=== PATIENT | male | born 1950 | race Caucasian/White ===

== ENCOUNTER 2020-02-19 11:26 | Inpatient (IN) | payer MEDICARE, OTHER ==
[~2020-02-19] VITALS: Ht 167.6 cm; Wt 73.9 kg
[2020-02-19 12:05] LABS: *BILIRUBIN,URIN NEGATIVE (NEGATIVE); *CLARITY,URINE CLEAR (CLEAR); *COLOR,URINE YELLOW (YELLOW); *KETONES,URINE NEGATIVE (NEGATIVE); *UROBILINOGEN,URINE 0.2 E.U./dl (NORMAL); LEUKOCYTE ESTERASE ,URINE NEGATIVE (NEGATIVE); NITRITE, URINE NEGATIVE (NEGATIVE); PH,URINE 7.5 (5.0-8.0); UGLUCOSE NEGATIVE (NEGATIVE)
[2020-02-19 12:19] LABS: *BLOOD, URINE TRACE (NEGATIVE)
[2020-02-19 12:22] LABS: BASOPHILS % (AUTO) 0.5 % (0.0-2.0); EOSINOPHILS % (AUTO) 0.9 % (0.0-7.0); HEMATOCRIT 44.6 % (36.7-47.1); LYMPHOCYTES # (AUTO) 0.5 K/uL (20.0-40.0); LYMPHOCYTES % (AUTO) 17.7 % (20.5-51.5); MEAN CORPUSCULAR HEMOGLOBIN 29.9 uug (23.8-33.4); MEAN CORPUSCULAR HGB CONC 34 g/dL (32.5-36.3); MONOCYTES # (AUTO) 0.3 K/uL (2.0-10.0); MONOCYTES % (AUTO) 12.4 % (0.0-11.0); NEUTROPHILS # (AUTO) 1.9 K/uL (1.8-8.9); NEUTROPHILS % (AUTO) 68.5 % (38.5-71.5); PLATELET COUNT (AUTO) 189 K/uL (152-348); RED BLOOD CELL COUNT(AUTO) 5.01 MIL/uL (4.06-5.63); WHITE BLOOD COUNT (AUTO) 2.8 K/uL (3.6-10.2)
--- NOTE | 2020-02-19 12:22 | NUR ---
PT IS IN ROOM #2B . DR VAZQUEZ EVALUATED THE PT. PT IS RESTING IN BED COMFORTABLY. NO S/S OF ACUTE DISTRESS AT THIS TIME. CONTINUE TO MONITOR THE PT.
[2020-02-19 12:33] LABS: CARBON DIOXIDE 29 mmol/L (21-32); CHLORIDE 109 mmol/L (98-107); CREATININE 0.9 mg/dL (0.6-1.3); GLUCOSE 106 mg/dL (74-106); POTASSIUM 4.1 mmol/L (3.5-5.1); UREA NITROGEN, BLOOD 12 mg/dL (7-18)
[2020-02-19 12:45] LABS: ETHANOL < 3 MG/DL (0-0)
[2020-02-19 12:49] LABS: ALANINE AMINOTRANSFERASE 29 U/L (16-63); ALKALINE PHOSPHATASE 102 U/L (50-136); ASPARTATE AMINOTRANSFERASE 24 U/L (15-37); BILIRUBIN,DIRECT 0.1 mg/dL (0.0-0.2); BILIRUBIN,TOTAL 1.5 mg/dL (0.2-1.0); TOTAL PROTEIN, SERUM 7.5 g/dL (6.4-8.2)
[2020-02-19 12:50] LABS: ACETAMINOPHEN < 2.0 ug/mL (10-30)
[2020-02-19 13:28] LABS: WBC,URINE 0-3 /HPF (0-3)
[2020-02-19 13:29] LABS: BACTERIA,URINE FEW /HPF (NONE SEEN); RBC,URINE 0-3 /HPF (0-3)
--- NOTE | 2020-02-19 13:30 | NUR ---
PT WAS MEDICALY CLEARED BY DR VAZQUEZ. PT WAS TRANSFERED TO [facility] ROOM #145A. REPORT WAS GIVEN TO [facility] RN.
[2020-02-19 14:00] VITALS: BP_SYST 107; BP_SYST 172; BP_DIAS 74
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
[2020-02-19] MEDS ORDERED: MAGNESIUM HYDROXIDE 30 ML LIQUID UDC PO PRN (14:30)
[2020-02-19] MEDS ORDERED: MAG HYDROX/AL HYDROX/SIMETH 30 ML LIQUID UDC PO PRN (14:30)
[2020-02-19] MEDS ORDERED: ACETAMINOPHEN 325 MG TABLET PO PRN (14:30)
[2020-02-19] MEDS ORDERED: LORAZEPAM 1 MG TABLET PO PRN (14:30)
[2020-02-19] MEDS ORDERED: BLOOD SUGAR DIAGNOSTIC 1 EACH STRIP VI ONE (14:30)
[2020-02-19] MEDS ORDERED: TEMAZEPAM 7.5 MG CAPSULE PO PRN (14:30)
[2020-02-19 16:01] VITALS: BP 107/74
[2020-02-19 20:27] VITALS: BP 137/73
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
[2020-02-20 07:30] VITALS: BP 119/68
[2020-02-20 16:00] VITALS: BP 133/77
--- NOTE | 2020-02-20 16:10 | NUR ---
Family Contact: LUIS called the pts son, Sean ([phone]), and informed him that the pt is not going to be discharged at this time and explained the 14 day hold. The pts son also stated that the plan is for the pt to return to his home once he is stable.
--- NOTE | 2020-02-20 16:26 | NUR ---
Initial Discharge Plan: Pt currently resides in his home with his located at [address] [place] [id number]; ([phone]). Per pt, he would like to return. SW will work with the pt and the MD regarding appropriate discharge planning. SW will form a safe and proper plan.
[2020-02-20 20:13] VITALS: BP 150/74
[2020-02-20] MEDS: risperiDONE 0.5 MG TABLET PO SCH (20:26)
[2020-02-20] MEDS: DIVALPROEX 250 MG TABLET.DR PO SCH (21:00)
[2020-02-21 07:30] VITALS: BP 126/72
[2020-02-21] MEDS: risperiDONE 0.5 MG TABLET PO SCH ×2 (09:00→21:00)
[2020-02-21] MEDS: DIVALPROEX 250 MG TABLET.DR PO SCH ×2 (09:00→21:00)
--- NOTE | 2020-02-21 11:43 | NUR ---
Family Contact: LUIS called the pts son, Sean ([phone]), and informed him that the pt is currently not taking his medications and that he is not stable to be discharged and will most likely be placed on a 14 day hold. LUIS stated that she wanted to discuss the pts placement and the pts son stated that the pt will go home and the is aware that he is going to have to take some medications that she will assist with administering. LUIS stated that she will keep him updated on the pts treatment.
[2020-02-21 18:00] VITALS: BP 142/79
[2020-02-21 20:18] VITALS: BP 121/80
--- NOTE | 2020-02-21 21:08 | NUR ---
Received patient in bed, AAO x 2-3.Not compliant with the medication and stated that he does not need any medication. Explaining the importance of medication makes him angry and he wants to talk to charge nurse. No SI. No behavioral issues.Continue to monitor.
--- NOTE | 2020-02-22 04:09 | NUR ---
Patient refused all the due medications including Depakote 250 mg tab and risperidone 0.5 mg tab. Risks and benefits explained, still refused. Medications were returned. put the order of Lucie for him.
[2020-02-22 07:30] VITALS: BP 131/74
--- NOTE | 2020-02-22 08:10 | NUR ---
Received patient in room, awake. AAO x 3, no acute distress noted, safety measures in place and will continue with care.
[2020-02-22] MEDS: DIVALPROEX 250 MG TABLET.DR PO SCH ×2 (09:59→21:02)
[2020-02-22] MEDS: risperiDONE 0.5 MG TABLET PO SCH ×2 (09:59→21:02)
--- NOTE | 2020-02-22 11:00 | NUR ---
Patient is AAO x 3, able to express needs. Vital signs stable. NO acute distress or any SOB noted. Patient took all due medications during shift. With no SI noted. Patient is ambulatory by self and independent for care. Monitored closely. Patient also noted participating in activities and group therapy. Compliant with care for most of the shift.
--- NOTE | 2020-02-22 13:30 | NUR ---
LUIS Group Note: LUIS facilitated group therapy on 02/22/2020 at 1330. The group topic was discharge planning. Pt appeared to be in a euthymic mood and presented with an appropriate affect. Pt was engaged and actively participated for the duration of group. Pt maintained an appropriate distance from the other three group members, in compliance with COVID-19 social distancing regulations. Pt reported that he would like to discharge back home with his , son, and 5 y/o granddaughter. Pt reported he is very excited to see his granddaughter and can't wait to be home. Pt also reported that he has plans to accomplish a lot of errands around his house and plans to work on his garden upon discharge and returning home. Pt reported his family is his main social support. Pt did not exhibit any insight into the reason(s) for his current psychiatric hospitalization and the event(s) that led him here. Since pt's insight is limited, he could not verbalize a plan to avoid another [facility] hospitalization. SW discussed the plan for his to manage his medication and ensuring medication compliance; pt is agreeable. Pt reported he "never" wants to come back to [facility].
--- NOTE | 2020-02-22 15:23 | NUR ---
Received patient in room, awake. AAO x 3, no acute distress noted, safety measures in place and will continue with care. Addendum: 02/22/20 at 1525 by LAURENCE LIM RN RN wrong time.
[2020-02-22 15:28] VITALS: BP 114/69
--- NOTE | 2020-02-22 19:05 | NUR ---
Patient in room and resting at this time. Cooperated with care. Participated in group therapy. Compliant with treatment. Safety measures in place, needs attended and will continue with care.
[2020-02-22 21:02] VITALS: BP 131/76
[2020-02-23 07:30] VITALS: BP 111/69
[2020-02-23] MEDS: risperiDONE 0.5 MG TABLET PO SCH ×2 (08:38→20:22)
[2020-02-23] MEDS: DIVALPROEX 250 MG TABLET.DR PO SCH ×2 (08:38→20:22)
[2020-02-23 16:00] VITALS: BP 121/83
[2020-02-23 20:00] VITALS: BP 120/79
[2020-02-23] MEDS: SIMVASTATIN 20 MG TABLET PO SCH (20:22)
--- NOTE | 2020-02-24 05:25 | NUR ---
Gps:Remain AAO x 3, able to express needs. NO acute distress or any SOB noted. Patient took all due medications during shift. no SI noted. Ambulatory , self care and independent . Monitored closely. Compliant with care for most of the shift.
--- NOTE | 2020-02-24 06:07 | NUR ---
slept 7 hrs through the night.
[2020-02-24 07:30] VITALS: BP 106/63
[2020-02-24 07:31] LABS: BILIRUBIN,DIRECT 0.1 mg/dL (0.0-0.2); BILIRUBIN,TOTAL 0.6 mg/dL (0.2-1.0); TOTAL PROTEIN, SERUM 7.4 g/dL (6.4-8.2)
[2020-02-24] MEDS: risperiDONE 0.5 MG TABLET PO SCH ×2 (09:16→20:11)
[2020-02-24] MEDS: DIVALPROEX 250 MG TABLET.DR PO SCH ×2 (09:16→20:11)
[2020-02-24 16:11] VITALS: BP 119/69
[2020-02-24] MEDS: SIMVASTATIN 20 MG TABLET PO SCH (20:11)
[2020-02-24 20:21] VITALS: BP 127/78
--- NOTE | 2020-02-25 06:15 | NUR ---
Slept 7.00 hours last night.
[2020-02-25 07:30] VITALS: BP 109/67
[2020-02-25] MEDS: DIVALPROEX 250 MG TABLET.DR PO SCH ×2 (08:22→20:32)
[2020-02-25] MEDS: risperiDONE 0.5 MG TABLET PO SCH ×2 (08:22→20:32)
--- NOTE | 2020-02-25 11:10 | NUR ---
Probable Cause Hearing: Pt had a Probable Cause Hearing scheduled for today and pt did not attend. Pts hearing was upheld for grave disability and danger to others.
--- NOTE | 2020-02-25 12:16 | NUR ---
Family Contact: Pts son, Sean ([phone]), called the SW and stated that he would like an update for the pt. SW stated that the pt has shown improvement since he began to take his medications. LUIS stated that the pt was going to have a Riese hearing but now that the pt has been compliant with his medications so now that is not necessary. LUIS stated that the pt will most likely be discharged back home soon due to his improvement.
--- NOTE | 2020-02-25 14:35 | NUR ---
Group Note: SW encouraged the pt to attend group therapy on 02/25/20 at 1330 discussing grief and loss. Pt stated that he had experienced loss of his parents when he was younger and expressed that he does not remember that anymore. SW asked the pt to describe any other loss that he may be currently experiencing such as the loss of being with his family members, or loss of purpose for example, but the pt stated that he did not understand that much Puerto [place]ican.
[2020-02-25 16:00] VITALS: BP 153/81
[2020-02-25 20:00] VITALS: BP 134/74
[2020-02-25] MEDS: SIMVASTATIN 20 MG TABLET PO SCH (20:32)
--- NOTE | 2020-02-26 06:04 | NUR ---
PT SLEPT 8 HOURS 15 minutes. PT IN NO ACUTE DISTRESS. PT PRESCRIBED MEDICATION GIVEN AND PT TOLERATED IT WELL. PT GIVEN TYLENOL PRN AT 2032 H FOR 99.3 TEMPERATURE. RESTORIL GIVEN AT 0008H PER PT REQUEST TO GET HIMSELF TO SLEEP. SAFETY AND COMFORT PROVIDED. WILL ENDORSE TO INCOMING NURSE FOR CONTINUITY OF CARE.
[2020-02-26 07:53] VITALS: BP 105/83
[2020-02-26] MEDS: DIVALPROEX 250 MG TABLET.DR PO SCH ×2 (08:17→21:18)
[2020-02-26] MEDS: risperiDONE 0.5 MG TABLET PO SCH (08:17)
--- NOTE | 2020-02-26 14:45 | NUR ---
Group Note: SW encouraged the pt to attend group therapy on 02/26/20 at 1330 discussing discharge planning. SW informed the pt that he has been showing improvement and therefore the MD will most likely discharge him back home. Pt stated that he is excited to return to his home where he will be with his loving and can see his grandchildren. Pt stated that he wants to go back home as soon as he can and that he feels like he has been here for too long. SW stated that he will be discharged soon and when he does SW asked the pt to explain how he is going to care for himself. Pt stated that his is going to give him his medications and that he is going to take them. SW stated that is an appropriate plan.
[2020-02-26 15:11] VITALS: BP 98/70
--- NOTE | 2020-02-26 20:00 | NUR ---
Patient received into care walking in hallway. Patient is alert/oriented x2-3 and has no complaints of pain or discomfort at this time. All safety, fall, and GPS/MHU precautions are in place. Will continue to monitor and assess.
[2020-02-26 20:37] VITALS: BP 130/66
[2020-02-26] MEDS: SIMVASTATIN 20 MG TABLET PO SCH (21:18)
[2020-02-26] MEDS: risperiDONE 1 MG TABLET PO SCH (21:18)
--- NOTE | 2020-02-27 06:32 | NUR ---
Patient slept 7 hours and had no complaints of pain or discomfort this shift. Pt was compliant with all medical, medication, and diet. Pt is now awake and alert and watching television in the activities room. All safety, fall, GPS/MHU, and fall precaution measures remain in place.
[2020-02-27 07:30] VITALS: BP 109/65
[2020-02-27] MEDS: risperiDONE 1 MG TABLET PO SCH ×2 (08:40→20:39)
[2020-02-27] MEDS: DIVALPROEX 250 MG TABLET.DR PO SCH ×2 (08:40→20:38)
[2020-02-27 16:00] VITALS: BP 135/71
[2020-02-27 20:16] VITALS: BP 157/80
[2020-02-27] MEDS: SIMVASTATIN 20 MG TABLET PO SCH (20:38)
--- NOTE | 2020-02-28 03:17 | NUR ---
Received patient in dinning room, AAO x 3.Compliant with the medication. Calm and cooperative. No SI. No behavioral issues.Continue to monitor.
[2020-02-28 07:30] VITALS: BP 124/65
[2020-02-28] MEDS: risperiDONE 1 MG TABLET PO SCH (08:28)
[2020-02-28] MEDS: DIVALPROEX 250 MG TABLET.DR PO SCH (08:29)
--- NOTE | 2020-02-28 08:30 | NUR ---
Family Contact: SW called the pts son, Sean ([phone]), and informed him that the pt is being discharged today. He stated that he can come mushroom picker the pt around 1pm. LUIS received information on the pts primary care physician and then stated that she will attempt to make the follow up appointment.
--- NOTE | 2020-02-28 10:06 | NUR ---
[facility]: SW received a call from Jeffry Francis from [facility] who stated that he would like the pts paperwork to be faxed over to him as he was the one who put the pt on the hold.
--- NOTE | 2020-02-28 10:07 | NUR ---
Primary Care Contact: SW contacted the pts primary care physician, Dr. Jeffry Grande ([phone]), and attempted to make an appointment for the pt but they do not have anything available before 06/2020. LUIS was informed that she could send over a packet of notes and a request for an earlier appointment as a hospital follow up. LUIS faxed the notes to: .
--- NOTE | 2020-02-28 13:31 | NUR ---
Patient was discharged home with son in a private car. VS stable, alert and oriented x3. Instructions given to patient in Hebrew, verbalized understanding of follow up appointments, prescriptions and importance of medication compliance. Son was given verbal instructions also. Patient denies SI and HI. Behavior is calm and cooperative. No distress noted. Belongings sent with patient.
--- NOTE | 2020-02-28 13:45 | NUR ---
Discharge Note: Pt was discharged back to his home located at [address] [place] [id number]; ([phone]). Pts son, Sean ([phone]), picked up the pt around 1PM. Upon discharge, the pt appeared to be in a euthymic mood and presented with a distressed mood. Pt is Libyan speaking only. SW was able to communicate with the pt with a bar assistant and determined that the pt is alert and oriented x3. Pt denied suicidal and homicidal ideation as well as auditory and visual hallucinations. Pt appeared to be ambulatory with a steady gait. Pt appeared to be well groomed and appropriately dressed. Pt will be under the care of [facility] located at [address] [place] [phone]; ; fax: for psychiatric services and will continue to be under the care of his automobile club travel counselor, Dr. Jeffry Grande located at [address] [place] [phone]; ; fax: . Pt has an appointment on 03/03/20 at 1400. Fax of records was sent to both the psychiatric referral and for the pts automobile club travel counselor.
== END 2020-02-28 13:15 | disposition home or self-care (01) | DRG 885 ==
LOC: ER 11:26 → GPS 13:39 → EDBD 13:39 → GPS 02-20 14:35
PROVIDERS: ADMIT Psychiatry & Neurology Psychiatry; ATTEND Nurse Practitioner Acute Care
DX: F29 Unspecified psychosis not due to a substance or known physiological condition (principal); F25.0 Schizoaffective disorder, bipolar type; D72.819 Decreased white blood cell count, unspecified; E78.5 Hyperlipidemia, unspecified; R73.03 Prediabetes; Z81.8 Family history of other mental and behavioral disorders; Z85.46 Personal history of malignant neoplasm of prostate; E80.6 Other disorders of bilirubin metabolism; F39 Unspecified mood [affective] disorder
CPT/HCPCS: 36415; 80329; 85025; A4663; G0480; G0480-TC; J3490